=== PATIENT | female | born 1940 | race Caucasian/White ===

== ENCOUNTER 2017-02-01 09:38 | Emergency (ER) | payer BC, MEDICARE ==
[~2017-02-01] VITALS: Ht 157.5 cm; Wt 64.9 kg
[~2017-02-01 09:38] MED LIST: HYDR-4663 PO; LATA0.0015 EACHEYE; LEV500T PO; METR500T14 PO; ONDA4TAB5 PO; TIMO0.5S40 EACHEYE
[2017-02-01 10:00] VITALS: BP 155/74
[2017-02-01] MEDS ORDERED: ACETAMINOPHEN 325 MG TAB PO ONE (11:15)
== END 2017-02-01 12:17 | disposition home or self-care (01) ==
LOC: ER 09:38
DX: M47.812 Spondylosis without myelopathy or radiculopathy, cervical region (principal); M19.90 Unspecified osteoarthritis, unspecified site; M54.5 Low back pain; R51 Headache; Z79.899 Other long term (current) drug therapy
CPT/HCPCS: 72125